=== PATIENT | male | born 1965 | race Caucasian/White ===

== ENCOUNTER 2016-09-22 04:57 | Emergency (ER) | payer SELFPAY ==
[~2016-09-22] VITALS: Ht 188 cm; Wt 86.0 kg
[2016-09-22] MEDS ORDERED: HYDROCODONE/ACETAMINOPHEN 5-325 MG TABLET PO ONE (06:30)
[2016-09-22] MEDS ORDERED: CYCLOBENZAPRINE HCL 10 MG TABLET PO ONE (06:30)
[2016-09-22 08:23] VITALS: BP 121/79
== END 2016-09-22 08:33 | disposition home or self-care (01) ==
LOC: EMS 04:59
DX: M25.551 Pain in right hip (principal); M54.41 Lumbago with sciatica, right side
CPT/HCPCS: 72100; 73502; 99284